=== PATIENT | male | born 1945 | race Caucasian/White ===

== ENCOUNTER → 2019-01-17 13:01 | Outpatient (CLI) | payer OTHER, SELFPAY ==
--- NOTE | 2019-01-17 13:06 | VDLE_ITS ---
Reason For Study: Edema Procedure LEFT Exam performed in department. CFV is compressible, spontaneous, phasic, competent, and demonstrates normal augmentation. FV is compressible, spontaneous, phasic, competent and demonstrates normal augmentation. POP V is compressible, spontaneous, phasic, competent and demonstrates normal augmentation. T/P Trunk is compressible. PTV is compressible. LT PerV is compressible. SFJ is competent. GSV is INCOMPETENT for greater than 0.5 seconds and measures 0.35 x 0.38 cm. SSV is competent. Interpretation Summary 1. Left no DVT. 2. Left GSV 4mm reflux. Ordering Physician: Luis Fink Referring Physician: Zheng Haynes Performed By: Nunu Calderon RVT
== END ==
PROVIDERS: Family Provider Family Medicine; PCP Family Medicine; Referring Provider Surgery Vascular Surgery; Visit Provider Surgery Vascular Surgery
DX: R60.0 Localized edema (principal); M79.609 Pain in unspecified limb
CPT/HCPCS: 93971